=== PATIENT | female | born 1995 | race African-American/Black ===

== ENCOUNTER 2017-06-26 12:03 | Emergency (ER) | payer BC ==
[~2017-06-26] VITALS: Ht 170.2 cm; Wt 125.7 kg
[~2017-06-26 12:03] MED LIST: ERYTOIN10 LEFT EYE; OPCOSOL LEFT EYE
[2017-06-26 12:10] VITALS: BP 140/70; PULSE 70; RESP 16; TEMP 98.2; O2SAT 98
[2017-06-26] MEDS ORDERED: AZIT250T3 PO (12:42)
[2017-06-26] MEDS ORDERED: PRED10 PO (12:42)
--- NOTE | 2017-06-26 12:43 | PD ---
HPI Chief Complaint: Cold / Flu Symptoms Time Seen by Provider: 12:24 Travel History International Travel<30 days: No Contact w/Intl Traveler<30days: No Traveled to known affect area: No History of Present Illness HPI 21-year-old female presents emergency department complaining of sore throat and a productive cough that started Monday. Patient states that her throat started feeling pressure on Monday and developed as what she described as swelling and mucus production. Says she had a headache on Monday and this morning she woke up with a runny nose and yellow to white sputum. She decided to come to the emergency room for evaluation. Says the symptoms feel like "bronchitis" and had these symptoms previously that developed into pneumonia. Patient has tried Delsym, Mucinex and Robitussin without significant improvement. Denies fevers, chills, nausea, vomiting, diarrhea. Denies chest pain or shortness of breath. She has no other complaints today. PFSH Past Medical History Diminished Hearing: No Immunizations Current: Yes ?: Not LMP: 06/16/17 Social History Alcohol Use: No Tobacco Use: No Substance Use: No Allergies-Medications (Allergen,Severity, Reaction): Coded Allergies: No Known Allergies (Unverified Adverse Reaction, Unknown, 06/26/17) Reported Meds & Prescriptions Reported Meds & Active Scripts Active Azithromycin 250 Mg Tab 250 Mg PO DIRECTED Take 2 tabs (500 mg) on day 1 then 1 tab daily x 4 days. Prednisone 10 Mg Tab 10 Mg PO DAILY 5 Days Review of Systems Except as stated in HPI: all other systems reviewed are Neg Physical Exam Narrative GENERAL: Well-nourished, well-developed patient. SKIN: Focused skin assessment warm/dry. HEAD: Normocephalic. EYES: No scleral icterus. No injection or drainage. PERRLA, EOMI NECK: Supple, trachea midline. No JVD or lymphadenopathy. THROAT: No pharyngeal exudates, or tonsillar hypertrophy. Mild pharyngeal injection. airway is patent. CARDIOVASCULAR: Regular rate and rhythm without murmurs, gallops, or rubs. RESPIRATORY: Breath sounds equal bilaterally. No accessory muscle use. GASTROINTESTINAL: No CVA tenderness MUSCULOSKELETAL: No cyanosis, or edema. BACK: Nontender without obvious deformity. No CVA tenderness. Data Data Last Documented VS Vital Signs Date Time Temp Pulse Resp B/P (MAP) Pulse Ox O2 Delivery O2 Flow Rate FiO2 06/26/17 12:10 98.2 70 16 140/70 (93) 98 Orders Orders Ed Discharge Order (06/26/17 12:43) [facility] Medical Decision Making Medical Screen Exam Complete: Yes Emergency Medical Condition: Yes Differential Diagnosis URI, influenza, bronchitis, pneumonia Narrative Course 21-year-old female presents emergency department evaluation of cough, congestion , sore throat that is been present for several days. Vital signs are stable. Physical exam findings consistent with an upper respiratory infection versus bronchitis. Because of the nasal congestion, cough and bronchitis type of symptoms, will prescribe prednisone. Advised that if she does not improve with prednisone within 2 days that she may start azithromycin. I strongly advised her to not use azithromycin unless her symptoms worsen. She states understanding, will comply. I also advised patient to follow with the primary care physician for further treatment and evaluation. Diagnosis Primary Impression: Bronchitis Referrals: [facility] Additional Instructions: You may use a drop of honey and lemon in a cup of warm water to soothe your cough. (If you are greater than 1 year old ) Ensure good hydration and a nutritious diet. Note that viral infection symptoms may last for several weeks if you have a viral illness. Follow up with your primary physician within 2-3 days. Return to the ED for worsening or persistent symptoms. DO NOT Start the antibiotic unless your symptoms worsen over the next 2 days. Scripts Azithromycin (Azithromycin) 250 Mg Tab 250 MG PO DIRECTED for Infection, #6 TAB 0 Refills Take 2 tabs (500 mg) on day 1 then 1 tab daily x 4 days. Prov: Courtney Lopez DO 06/26/17 Prednisone (Prednisone) 10 Mg Tab 10 MG PO DAILY for 5 Days, #5 TAB 0 Refills Prov: Courtney oLpez DO 06/26/17 Disposition: 01 DISCHARGE HOME Condition: Stable Kell Olivarez June 26, 2017 12:43
== END 2017-06-26 12:49 | disposition home or self-care (01) ==
LOC: PHEFT 12:03
DX: J40 Bronchitis, not specified as acute or chronic (principal); R51 Headache
CPT/HCPCS: 99283